=== PATIENT | male | born 2000 | race Caucasian/White ===

== ENCOUNTER 2019-02-14 17:40 | Emergency (ER) | payer MEDICARE ==
[~2019-02-14] VITALS: Ht 172.7 cm; Wt 59.0 kg
[2019-02-14 17:57] VITALS: BP 118/65
== END 2019-02-15 00:47 | disposition left against medical advice (07) ==
LOC: ER 17:43
DX: R06.02 Shortness of breath (principal); R50.9 Fever, unspecified; R51 Headache; Z53.21 Procedure and treatment not carried out due to patient leaving prior to being seen by health care provider